=== PATIENT | male | born 1985 | race Two or more races ===

== ENCOUNTER 2022-02-26 19:57 | Emergency (ER) | payer OTHER ==
[~2022-02-26] VITALS: Ht 172.7 cm; Wt 61.2 kg
--- NOTE | 2022-02-26 21:04 | NUR ---
Dr. Pickens at bedside for MSE.
--- NOTE | 2022-02-26 21:09 | NUR ---
Patient discharged to home in stable condition. Written and verbal after care instructions given. Patient verbalizes understanding of instructions. Stressed follow up or return to ER for worsening s/s. Patient out of ER with steady gait, no acute signs of distress, VSS, all belongings taken.
[2022-02-26 21:10] VITALS: BP 135/89
== END 2022-02-26 21:10 | disposition home or self-care (01) ==
LOC: ER 20:02
DX: S09.90XA Unspecified injury of head, initial encounter (principal); Y04.2XXA Assault by strike against or bumped into by another person, initial encounter; Y92.89 Other specified places as the place of occurrence of the external cause
CPT/HCPCS: A4663